=== PATIENT | female | born 1970 | race Caucasian/White ===

== ENCOUNTER → 2018-06-21 10:51 | Outpatient (CLI) | payer OTHER, SELFPAY ==
--- NOTE | 2018-06-21 10:56 | VDLE_ITS ---
Reason For Study: LEG PAIN RIGHT LEFT GSV is normal. CFV is compressible, spontaneous, phasic, CFV is compressible, spontaneous, phasic, competent, and demonstrates normal competent and demonstrates normal augmentation. augmentation. FV is compressible, spontaneous, phasic, competent and demonstrates normal augmentation. POP V is compressible, spontaneous, phasic, competent and demonstrates normal augmentation. T/P Trunk is compressible. PTV is compressible. RT PerV is compressible. Procedure Exam performed in department. A preliminary report was called and/or faxed to Dr. Venita Kelsey. Interpretation Summary Deep veins of the right lower extremity are patent and compressible segmentally. There is no evidence of right lower extremity deep vein thrombosis. Valvular competence appears intact within the proximal deep venous system on the right . The right greater saphenous vein appears patent and compressible segmentally. Ordering Physician: Manjeet Kelsey Referring Physician: Jose Alberto Charles Performed By: Quita Vu RVT
== END ==
PROVIDERS: Family Provider Student in an Organized Health Care Education/Training Program; PCP Student in an Organized Health Care Education/Training Program; Visit Provider Orthopaedic Surgery
DX: M79.604 Pain in right leg (principal)
CPT/HCPCS: 93971

== ENCOUNTER → 2019-08-07 10:53 | Outpatient (CLI) | payer OTHER, SELFPAY ==
--- NOTE | 2019-08-07 10:56 | CT_ITS ---
STUDY: CT ABDOMEN AND PELVIS WITHOUT CONTRAST REASON FOR EXAM: Female, 49 years old. Hematuria. Flank pain. RADIATION DOSAGE (If Supplied By Facility): CTDIvol = ( 6.71 ) mGy, DLP = ( 328.53 ) mGycm TECHNIQUE: Transaxial images were obtained from the dome of the diaphragm to the symphysis pubis without oral contrast, and without intravenous contrast. Sagittal and coronal images were reconstructed. Individualized dose optimization techniques were used for this CT. COMPARISON: Comparison is made with prior study of February 13, 2017. FINDINGS: The visualized lung bases are unremarkable. The visualized portions of the heart are within normal limits. Normal liver. There are surgical clips in the gallbladder fossa consistent with a prior cholecystectomy. Normal spleen. Normal pancreas. Normal bilateral adrenal glands. Normal right kidney. Stable moderate degree of left hydronephrosis. No obstructive calculus is seen. Left ureteropelvic junction stricture should be ruled out. Normal visualized stomach. Normal small intestine. Normal colon. The appendix is visualized and appears normal. There is scattered. Atherosclerotic calcification of the abdominal aorta, without a demonstrated aneurysm. Normal inferior vena cava. There is borderline retroperitoneal lymphadenopathy with enlarged nodes no greater than 10mm in the short axis diameter. Normal urinary bladder. There is absence of the uterus consistent with a prior hysterectomy. Multiple phleboliths are seen in the pelvis. Normal abdominal wall. Normal osseous structures. CT/Abdomen/Pelvis without Cont IMPRESSION: Stable moderate degree of left hydronephrosis to the level of the left ureteropelvic junction. No obstructive calculus is seen. Electronically Signed: Raleigh Morris, at 11:34 EDT , Service support ,
== END ==
LOC: CT 10:54
PROVIDERS: Family Provider Student in an Organized Health Care Education/Training Program; PCP Student in an Organized Health Care Education/Training Program; Referring Provider Nurse Practitioner Adult Health; Visit Provider Nurse Practitioner Adult Health
DX: R31.9 Hematuria, unspecified (principal); R10.9 Unspecified abdominal pain
CPT/HCPCS: 74176

== ENCOUNTER → 2019-08-08 11:25 | Outpatient (CLI) | payer OTHER, SELFPAY ==
--- NOTE | 2019-08-08 | CYSPIN_PTH ---
PATIENT: YOLIE CASTELLON LOC: LAB U#:[id number] AGE/SX: 55/F ROOM: RE08/08/[address]: Sanna Rogers : 1970 BED: DIS: SPEC #: [id number] RECD: 08/08/19 11:37 STATUS: ROSA REFlorentin #: [id number] MARGARITA: 08/08/19 00:[address]: Sanna Rogers DEPT: CYTOLOGY RECD BY: Wayne Doan ENTERED: 08/08/19 12:15 SP TYPE: CYSPIN FL OTHR DR: Dr. Jose Alberto Charles, DO Sanna Rogers, ENGINEER ASSISTANT-C Tissues: Urine Procedures: Pap Stain (control) Special Stain Group II Cytospin Fluid HEADER OPERATION: Not noted PRE-OP DIAGNOSIS: Microhematuria TISSUE SUBMITTED: Urine for cytology DIAGNOSIS CYTOLOGY Urine for cytology (cytospin): Negative for malignant cells. See comment. AM:delvin 08/09/19 COMMENT The specimen primarily contains squamous epithelial cells. Clinical correlation is necessary. CYTOLOGY STUDY Slides are reviewed. CYTOLOGY GROSS Received is 30 ml of light yellow fluid labeled with the patient's name and and designated per the requisition as urine. Submitted for cytology preparation. / delvin 08/08/19 TC:5 CPT: 12570
[2019-08-08 11:39] LABS: Cytology, Body Fluid / CSF SEE PATHOLOGY REPORT
== END ==
PROVIDERS: Family Provider Student in an Organized Health Care Education/Training Program; PCP Student in an Organized Health Care Education/Training Program; Referring Provider Nurse Practitioner Adult Health
DX: R31.29 Other microscopic hematuria (principal)
CPT/HCPCS: 36415; 87086; 88108; 88313

== ENCOUNTER → 2019-08-13 10:55 | Outpatient (CLI) | payer OTHER, SELFPAY ==
[2017-02-14 09:25] VITALS: BMI 24.4
[2019-08-13 10:59] LABS: Bacteria 0 SEEN /hpf (None Seen); Mucous, Urine 0 SEEN /hpf (<or=2+); Red Blood Cells-Urine 0 SEEN /hpf (0-5); White Blood Cells 0 SEEN /hpf (0-5)
[2019-08-13 11:32] LABS: Color, Urine Yellow (Yellow); Glucose, Dipstick Normal (Normal); Ketone-Dipstick Negative (Negative); Leukocyte Esterase-Dipstick Negative /ul (Negative); Nitrite-Dipstick Negative (Negative); Occult Blood-Urine 25 /ul (Negative); Protein-Dipstick Negative (Negative); Urine Bilirubin Dipstick Negative (Negative); Urine Clarity Sl. Cloudy (Clear); Urine Urobilinogen Normal (Normal)
[2019-08-13 11:41] LABS: Squamous Epithelial Cells - UA 0-5 SEEN /hpf (5-10)
== END ==
LOC: LAB.FUTURE 10:56 → LAB 10:59
PROVIDERS: Family Provider Student in an Organized Health Care Education/Training Program; PCP Student in an Organized Health Care Education/Training Program; Referring Provider Nurse Practitioner Adult Health; Visit Provider Nurse Practitioner Adult Health
DX: R31.29 Other microscopic hematuria (principal)
CPT/HCPCS: 81001

== ENCOUNTER → 2021-09-27 10:19 | Outpatient (CLI) | payer OTHER, SELFPAY ==
--- NOTE | 2021-09-24 15:00 | FLU_PTH ---
PATIENT: YOLIE CASTELLON LOC: [facility] U#:[id number] AGE/SX: 55/F ROOM: RE09/27/[address]: Dr. Jose Alberto Charles DO : 1970 BED: DIS: SPEC #: [id number] RECD: 09/24/21 17:00 STATUS: ROSA REQ #: [id number] MARGARITA: 09/24/21 15:[address]: Rea Messer DEPT: CYTOLOGY RECD BY: Linda Alcaraz ENTERED: 09/27/21 11:23 SP TYPE: Fluid OTHR DR: Dr. Jose Alberto Charles DO Tissues: A - Thyroid gland, NOS B - Thyroid gland, NOS Procedures: Special Stain Group II Surgery Specimen Level IV Cytospin Fluid Cytology Other Comments: @ Ordering doctor for SSII edited from to @ by TERI at 09/27/21 1218 @ Ordering doctor for SUIV edited from to DR.LWANG Nava by TERI at 09/27/21 1218 @ Ordering doctor for CYSPIN edited from to DR.LWANG Nava by TERI at 09/27/21 1218 @ Ordering doctor for CYOTHER edited from to DR.LWANG Nava by TERI at 09/27/21 1218 @ Submitting doctor edited from to @ by RGOEARL at 09/27/21 1218 HEADER OPERATION: Left thyroid fine needle aspiration PRE-OP DIAGNOSIS: Thyroid nodule TISSUE SUBMITTED: A - FNA left thyroid fluid, B - FNA left thyroid slides x6 DIAGNOSIS CYTOLOGY A. Fine needle aspiration, left thyroid fluid (cytospin and cell block): Adequate for evaluation. Negative, consistent with benign follicular nodule. Chronic inflammation. B. Fine needle aspiration, left thyroid nodule (smears): Adequate for evaluation. Negative, consistent with chronic thyroiditis. AM:delvin 09/28/2021 CYTOLOGY STUDY Slides are reviewed. CYTOLOGY GROSS A - Received is 30 ml of brown cloudy fluid labeled with the patient's name and and designated per the requisition as left thyroid. Submitted for cytology preparation including cell block. B - Received are six smears labeled with the patient's name and designated per the requisition as left thyroid. Submitted for staining. / delvin 09/27/2021 TC:3 CPT: 49697, 80295, 68514
== END ==
LOC: LAB 10:21 → LABSPEC 10:28
PROVIDERS: PCP Student in an Organized Health Care Education/Training Program; Visit Provider Student in an Organized Health Care Education/Training Program
DX: E04.1 Nontoxic single thyroid nodule (principal)
CPT/HCPCS: 88108; 88161; 88305; 88313

== ENCOUNTER → 2023-10-19 | Outpatient (CLI) | payer OTHER, SELFPAY ==
--- NOTE | 2023-10-19 08:10 | CT_ITS ---
EXAM: CT MAXILLOFACIAL SINUSES WITHOUT INTRAVENOUS CONTRAST CLINICAL INDICATION: SINUITIS TECHNIQUE: Helically acquired images were obtained of the maxillofacial sinuses without intravenous contrast. This CT exam was performed using one or more of the following dose reduction techniques: automated exposure control, adjustment of the mA and/or kV according to patient size, and/or use of iterative reconstruction technique. COMPARISON: No relevant prior studies available. FINDINGS: MAXILLARY SINUSES: Clear. Ostiomeatal complexes are normally formed. SPHENOID SINUSES: Clear. FRONTAL SINUSES: Clear. ETHMOID AIR CELLS: Clear. NASAL CAVITY/SEPTUM: Mild deviation of the nasal septum to the right of midline associated with a right-sided septal spur. Mucosal thickening of the left inferior turbinate. BONES/JOINTS: Normal. ORBITS: Normal. DENTAL: Unremarkable as visualized. No periodontal osseous erosion. CT/Sinus/Facial Bone IMPRESSION: No evidence of sinusitis. Electronically Signed: Aidan Barahona MD at 8:41 EST ,
== END | disposition home or self-care (01) ==
PROVIDERS: PCP Student in an Organized Health Care Education/Training Program; Referring Provider Otolaryngology; Visit Provider Otolaryngology
DX: J32.4 Chronic pansinusitis (principal)
CPT/HCPCS: 70486

== ENCOUNTER 2024-10-04 19:33 | Emergency (ER) | payer OTHER, SELFPAY ==
[2024-10-04 19:34] VITALS: BP 124/83; PULSE 98; RESP 16; TEMP 36.8; O2SAT 100; BMI 28.5
--- NOTE | 2024-10-04 20:06 | CT_ITS ---
STUDY: CT ABDOMEN AND PELVIS WITH CONTRAST REASON FOR EXAM: Female, 54 years old. abdominal pain RADIATION DOSAGE (If Supplied By Facility): CTDIvol = ( 13.25 ) mGy, DLP = ( 819.98 ) mGycm TECHNIQUE: Transaxial images were obtained from the dome of the diaphragm to the symphysis pubis without oral contrast. IV 100mL Isovue-[id number] was administered. Sagittal and coronal images were reconstructed. Individualized dose optimization techniques were used for this CT. COMPARISON: None. FINDINGS: The visualized lung bases are unremarkable. The visualized portions of the heart are within normal limits. Normal liver. Nonvisualization of the gallbladder. No dilatation of the extrahepatic biliary system. Normal spleen. Normal pancreas. Normal bilateral adrenal glands. Hydronephrosis of the right kidney with right hydroureter. Parapelvic cysts in the left kidney. Normal visualized stomach. Normal small intestine. Normal colon. The appendix is visualized and appears normal. Normal abdominal aorta. Normal inferior vena cava. Normal retroperitoneum. Trace stone at the right UVJ of the urinary bladder. Normal abdominal wall. Normal osseous structures. CT/Abdomen/Pelvis W IV Cont ONLY IMPRESSION: Hydronephrosis of the right kidney with right hydroureter. Punctate stone at the right UVJ. Electronically Signed: Murphy Mobley DO at 22:29 EST ,
--- NOTE | 2024-10-04 20:07 | EX.ED.DYSGE1 ---
HPI <TED Pa - Last Filed: 10/04/24 22:00> History of Present Illness Chief Complaint: Flank Pain Narrative Narrative: Patient is a 54-year-old female with history of kidney stones, anxiety who [facility] with 4 to 5 days of left-sided back pain. Patient states she had sudden onset of pain to her right flank that radiated to her right upper and lower abdomen. Patient did see a PCP yesterday in [facility], they gave her tamsulosin, and stated could be a kidney stone. Today, the patient was in significant amount of pain, she thought she was going to pass out. Patient states the pain has decreased slightly. Here for evaluation. PFSH <TED Pa - Last Filed: 10/04/24 22:00> PFSH Home Medications ?Medication ?Instructions ?Recorded ?Last Taken ?Type L.acidoph,paracasei,B.animalis 10 1 ea PO DAILY 02/02/17 Unknown History billion cell capsule ergocalciferol (vitamin D2) 1,250 50,000 mg PO QWEEK 02/02/17 Unknown History mcg (50,000 unit) capsule (Vitamin D2) montelukast 10 mg tablet 10 mg PO DAILY 02/02/17 Unknown History sertraline 25 mg tablet (Zoloft) 50 mg PO DAILY 02/02/17 Unknown History ondansetron 4 mg disintegrating 4 mg PO Q8H PRN PRN Nausea #10 tabs 02/03/17 Unknown Rx tablet ciprofloxacin HCl 500 mg tablet 500 mg PO BID ##14 02/13/17 Unknown Rx esomeprazole magnesium 20 mg 20 mg PO DAILY 02/13/17 Unknown History capsule,delayed release (Nexium) oxycodone-acetaminophen 5 mg-325 1 tab PO Q4H PRN PRN Pain #15 tabs 02/13/17 Unknown Rx mg tablet promethazine 25 mg tablet 25 mg PO Q6H PRN PRN Nausea ##10 02/13/17 Unknown Rx ondansetron 4 mg disintegrating 4 mg PO Q8H PRN PRN Nausea #10 tabs 02/14/17 Unknown Rx tablet oxycodone-acetaminophen 5 mg-325 1 - 2 tab PO Q4H PRN PRN Pain #20 02/14/17 Unknown Rx mg tablet tabs ketorolac 10 mg tablet 10 mg PO 4X/DAY PRN pain 5 days 10/04/24 Unknown Rx #20 tabs oxycodone-acetaminophen 5 mg-325 1 tab PO Q6H PRN pain 3 days #12 10/04/24 Unknown Rx mg tablet (Percocet) tabs Allergy/AdvReac Type Severity Reaction Status Date / Time penicillin Allergy Hives Verified 10/04/24 19:35 amoxicillin (From Augmentin) AdvReac Upset Verified 10/04/24 19:35 Stomach clavulanic acid (From AdvReac Upset Verified 10/04/24 19:35 Augmentin) Stomach naproxen AdvReac Upset Verified 10/04/24 19:35 Stomach Surgical History (Updated 10/04/24 @ 20:45 by Roxana Pringle) H/O: hysterectomy Hx of cholecystectomy Social History Smoking Status: Never smoker ROS <TED Pa - Last Filed: 10/04/24 22:00> ROS ED ROS Narrative Constitutional: Negative for fever, chills, weight loss, weakness Eyes: Negative for vision loss, vision change, double vision ENT: Negative for any sore throat, ear pain, congestion Cardiovascular: Negative for any chest pain, tightness, palpitations Respiratory: Negative for any cough, sputum production, hemoptysis, dyspnea, dyspnea on exertion, orthopnea Gastrointestinal: Negative for any vomiting, diarrhea, constipation, blood in stool, blood in vomit. Positive for right-sided flank pain, right-sided upper and lower abdominal pain : Negative for any urinary frequency, dysuria, retention, blood in urine Muscle skeletal: Negative for any neck pain, back pain Neurological: Negative for any headache, syncope, dizziness Skin: Negative for any rashes, itching, abrasions, lacerations Psychiatric: Negative for any depression, anxiety, stress, suicidal ideation, homicidal ideation Hematologic: Negative for any excessive bruising, easy bleeding EXAM <TED Pa - Last Filed: 10/04/24 22:00> Physical Exam Narrative Exam Narrative: Vital signs reviewed. HEET: Head normocephalic atraumatic, TMs clear bilaterally. Posterior pharynx is clear, moist mucous membranes. Nares clear bilaterally. Neck: Supple with no lymphadenopathy or tenderness. No signs of meningismus. Cardiac: Regular rate and rhythm no murmurs gallops or rubs, equal peripheral pulses bilaterally. Respiratory: Lungs clear to auscultation bilaterally. No chest tenderness. Abdomen: Soft, nondistended. No abdominal bruit or pulsatile masses. No hepatosplenomegaly. Patient's pain is slightly diffuse to the right flank, right upper and lower abdomen. There is no CVA tenderness. No peritoneal signs. Extremities: No peripheral edema, no signs of gross trauma or deformity. Active full range of motion of all extremities. Neuro: Cranial nerves II through XII intact, no focal neurological deficits. Skin: Clean dry and intact with no rash, purpura, petechiae, vesicles or pustules. Backs/flank: No CVA tenderness, no midline spinal tenderness, no deformity. Psych: Normal mood and affect. No SI, HI or acute psychosis. Const Vital Signs: 10/04/24 19:34 10/04/24 21:34 10/04/24 22:11 Temperature 98.2 F 98.2 F Temperature Source Temporal Pulse Rate 98 77 77 Respiratory Rate 16 16 16 Blood Pressure 124/83 H 127/78 H 127/78 H Blood Pressure Mean 96 94 94 Pulse Ox 100 98 98 Oxygen Delivery Method Room Air Room Air Positive well nourished and well developed General Appearance ED: well developed <Dr. David Ni, DO - Last Filed: 10/04/24 21:57> Physical Exam Const Vital Signs: 10/04/24 19:34 10/04/24 21:34 10/04/24 22:11 Temperature 98.2 F 98.2 F Temperature Source Temporal Pulse Rate 98 77 77 Respiratory Rate 16 16 16 Blood Pressure 124/83 H 127/78 H 127/78 H Blood Pressure Mean 96 94 94 Pulse Ox 100 98 98 Oxygen Delivery Method Room Air Room Air <Dr. Sanchez Raya, DO - Last Filed: 10/04/24 22:51> Physical Exam Const Vital Signs: 10/04/24 19:34 10/04/24 21:34 10/04/24 22:11 Temperature 98.2 F 98.2 F Temperature Source Temporal Pulse Rate 98 77 77 Respiratory Rate 16 16 16 Blood Pressure 124/83 H 127/78 H 127/78 H Blood Pressure Mean 96 94 94 Pulse Ox 100 98 98 Oxygen Delivery Method Room Air Room Air MDM <TED Pa - Last Filed: 10/04/24 22:00> MDM Lab Data Labs: Laboratory Results - last 24 hr 10/04/24 20:33 WBC 10.8 RBC 4.59 Hgb 13.6 Hct 40.3 MCV 87.8 MCH 29.6 MCHC 33.7 RDW Std Deviation 41.1 RDW Coeff of Cheikh 12.7 Plt Count 341 MPV 9.5 Immature Gran % (Auto) 0.500 Neut % (Auto) 65.8 Lymph % (Auto) 22.6 [place] % (Auto) 9.9 Eos % (Auto) 0.6 Baso % (Auto) 0.6 Absolute Neuts (auto) 7.1 Absolute Lymphs (auto) 2.44 Nucleated RBC % 0 Sodium 140 Potassium 3.9 Chloride 109 H Carbon Dioxide 27.0 Anion Gap 4 L BUN 10 Creatinine 1.00 Estim Creat Clear Calc 65.53 Est GFR (MDRD) Af Amer 74 Est GFR (MDRD) Non-Af 61 BUN/Creatinine Ratio 10.0 Glucose 113 H Calcium 9.1 Total Bilirubin 1.00 AST 13 L ALT 24 Alkaline Phosphatase 97 Total Protein 7.4 Albumin 3.6 Globulin 3.8 Albumin/Globulin Ratio 0.9 Lipase 48 Urine Color Yellow Urine Clarity Clear Urine pH 6.0 Ur Specific Al[place] 1.020 Urine Protein Negative Urine Glucose (UA) Normal Urine Ketones Negative Urine Occult Blood 150 H Urine Nitrite Negative Urine Bilirubin Negative Urine Urobilinogen Normal Ur Leukocyte Esterase Negative Urine RBC 0-5 SEEN Urine WBC 0-5 SEEN Ur Squamous Epith Cells 0-5 SEEN Urine Bacteria RARE Urine Mucus 0 SEEN Radiography Diagnostic Testing: Clinical Impression(s) from Imaging Studies Abdomen/Pelvis CT 10/04/24 20:06 IMPRESSION: Hydronephrosis of the right kidney with right hydroureter. Punctate stone at the right UVJ. Electronically Signed: Murphy Mobley DO at 22:29 EST Reading Location ID and State: [facility] / [place] Tel [phone], Service support , Treatment and Re-Evaluation :: Differential diagnosis includes however is not limited to: Obstructing uropathy, pyelonephritis, renal colic, acute appendicitis, diverticulitis Patient appears generally well, vital signs are stable, patient is nontoxic-appearing. Presenting to the emergency department with complaints of right-sided flank, right-sided upper and lower abdominal pain. Patient received a full abdominal workup including CBC CMP lipase, patient will receive a CT scan of the abdomen pelvis with IV contrast. Patient be given IV fluids, IV Zofran, IV Toradol. All radiologic examinations were read, reviewed by the emergency department attending. From these reads, a plan of care will be put in place. Patient's laboratory values show a normal CBC, patient's chemistries showed a glucose of 113, lipase was negative. Patient's urinalysis showed 150 blood, no infection noted. CT scan the abdomen pelvis with IV contrast ordered. I have personally performed a face to face assessment of the patient and have reviewed the [facility] Note. I performed a substantive portion of the visit including all aspects of the following. My salazar findings include: History is 54-year-old female history of kidney stones presenting to the emergency room with left flank right lower abdominal pain. Pelvic she might be having a stone so she started Flomax yesterday. Exam is patient resting comfortably. Vital signs are stable. Abdominal exam nonsurgical Medical Decison Making basic blood work and urinalysis negative. CT of the pelvis was obtained reviewed by myself. We will await the CT findings. I would anticipate a discharge based on my initial review. <Dr. David Ni, DO - Last Filed: 10/04/24 21:57> [facility] History & Record Review Discussion w/independent historian: Patient and Significant other Lab Data Attestation: I reviewed the patient's lab results. Labs: Laboratory Results - last 24 hr 10/04/24 20:33 WBC 10.8 RBC 4.59 Hgb 13.6 Hct 40.3 MCV 87.8 MCH 29.6 MCHC 33.7 RDW Std Deviation 41.1 RDW Coeff of Cheikh 12.7 Plt Count 341 MPV 9.5 Immature Gran % (Auto) 0.500 Neut % (Auto) 65.8 Lymph % (Auto) 22.6 [place] % (Auto) 9.9 Eos % (Auto) 0.6 Baso % (Auto) 0.6 Absolute Neuts (auto) 7.1 Absolute Lymphs (auto) 2.44 Nucleated RBC % 0 Sodium 140 Potassium 3.9 Chloride 109 H Carbon Dioxide 27.0 Anion Gap 4 L BUN 10 Creatinine 1.00 Estim Creat Clear Calc 65.53 Est GFR (MDRD) Af Amer 74 Est GFR (MDRD) Non-Af 61 BUN/Creatinine Ratio 10.0 Glucose 113 H Calcium 9.1 Total Bilirubin 1.00 AST 13 L ALT 24 Alkaline Phosphatase 97 Total Protein 7.4 Albumin 3.6 Globulin 3.8 Albumin/Globulin Ratio 0.9 Lipase 48 Urine Color Yellow Urine Clarity Clear Urine pH 6.0 Ur Specific Alma 1.020 Urine Protein Negative Urine Glucose (UA) Normal Urine Ketones Negative Urine Occult Blood 150 H Urine Nitrite Negative Urine Bilirubin Negative Urine Urobilinogen Normal Ur Leukocyte Esterase Negative Urine RBC 0-5 SEEN Urine WBC 0-5 SEEN Ur Squamous Epith Cells 0-5 SEEN Urine Bacteria RARE Urine Mucus 0 SEEN Radiography Diagnostic Testing: Clinical Impression(s) from Imaging Studies Abdomen/Pelvis CT 10/04/24 20:06 IMPRESSION: Hydronephrosis of the right kidney with right hydroureter. Punctate stone at the right UVJ. Electronically Signed: Murphy Mobley DO at 22:29 EST Reading Location ID and State: [address] [place] [address] Tel [phone], Service support , Treatment and Re-Evaluation :: Differential diagnosis includes however is not limited to: Obstructing uropathy, pyelonephritis, renal colic, acute appendicitis, diverticulitis Patient appears generally well, vital signs are stable, patient is nontoxic-appearing. Presenting to the emergency department with complaints of right-sided flank, right-sided upper and lower abdominal pain. Patient received a full abdominal workup including CBC CMP lipase, patient will receive a CT scan of the abdomen pelvis with IV contrast. Patient be given IV fluids, IV Zofran, IV Toradol. All radiologic examinations were read, reviewed by the emergency department attending. From these reads, a plan of care will be put in place. Patient's laboratory values show a normal CBC, patient's chemistries showed a glucose of 113, lipase was negative. Patient's urinalysis showed 150 blood, no infection noted. CT scan the abdomen pelvis with IV contrast ordered. I have personally performed a face to face assessment of the patient and have reviewed the [facility] Note. I performed a substantive portion of the visit including all aspects of the following. My salazar findings include: History is 54-year-old female history of kidney stones presenting to the emergency room with left flank right lower abdominal pain. Pelvic she might be having a stone so she started Flomax yesterday. Exam is patient resting comfortably. Vital signs are stable. Abdominal exam nonsurgical Medical Decison Making basic blood work and urinalysis negative. CT of the pelvis was obtained reviewed by myself. We will await the CT findings. I would anticipate a discharge based on my initial review. <Dr. Sanchez Raya, DO - Last Filed: 10/04/24 22:51> [facility] MDM Narrative Medical decision making narrative: Patient was signed out to me while awaiting results of her CT scan. CT scan showed a punctate stone at the right UVJ with hydronephrosis. However she has no signs of urosepsis or acute kidney injury and her pain had resolved in the ER. Therefore there is no need for further intervention and she is otherwise safe for discharge with outpatient urology follow-up Lab Data Labs: Laboratory Results - last 24 hr 10/04/24 20:33 WBC 10.8 RBC 4.59 Hgb 13.6 Hct 40.3 MCV 87.8 MCH 29.6 MCHC 33.7 RDW Std Deviation 41.1 RDW Coeff of Cheikh 12.7 Plt Count 341 MPV 9.5 Immature Gran % (Auto) 0.500 Neut % (Auto) 65.8 Lymph % (Auto) 22.6 [place] % (Auto) 9.9 Eos % (Auto) 0.6 Baso % (Auto) 0.6 Absolute Neuts (auto) 7.1 Absolute Lymphs (auto) 2.44 Nucleated RBC % 0 Sodium 140 Potassium 3.9 Chloride 109 H Carbon Dioxide 27.0 Anion Gap 4 L BUN 10 Creatinine 1.00 Estim Creat Clear Calc 65.53 Est GFR (MDRD) Af Amer 74 Est GFR (MDRD) Non-Af 61 BUN/Creatinine Ratio 10.0 Glucose 113 H Calcium 9.1 Total Bilirubin 1.00 AST 13 L ALT 24 Alkaline Phosphatase 97 Total Protein 7.4 Albumin 3.6 Globulin 3.8 Albumin/Globulin Ratio 0.9 Lipase 48 Urine Color Yellow Urine Clarity Clear Urine pH 6.0 Ur Specific [place] 1.020 Urine Protein Negative Urine Glucose (UA) Normal Urine Ketones Negative Urine Occult Blood 150 H Urine Nitrite Negative Urine Bilirubin Negative Urine Urobilinogen Normal Ur Leukocyte Esterase Negative Urine RBC 0-5 SEEN Urine WBC 0-5 SEEN Ur Squamous Epith Cells 0-5 SEEN Urine Bacteria RARE Urine Mucus 0 SEEN Radiography Diagnostic Testing: Clinical Impression(s) from Imaging Studies Abdomen/Pelvis CT 10/04/24 20:06 IMPRESSION: Hydronephrosis of the right kidney with right hydroureter. Punctate stone at the right UVJ. Electronically Signed: Murphy Mobley DO at 22:29 EST Reading Location ID and State: [facility] / [place] Tel [phone], Service support , Discharge Plan Triage Chief Complaint: Flank Pain ED Midlevel Provider: Sterling Ellison ED Provider: David Ni Dx/Rx/DC Orders Clinical Impression: Hematuria, Kidney stone Instructions: Abdominal Pain, ED Hematuria, ED Kidney Stone with Pain Prescriptions: New oxycodone-acetaminophen [Percocet] 5-325 mg tablet 1 tab PO Q6H PRN (Reason: pain) 3 Days Qty: 12 0RF ketorolac 10 mg tablet 10 mg PO 4X/DAY PRN (Reason: pain) 5 Days Qty: 20 0RF No Action sertraline [Zoloft] 25 MG tablet 50 mg PO DAILY montelukast 10 MG tablet 10 mg PO DAILY ergocalciferol (vitamin D2) [Vitamin D2] 50,000 UNIT capsule 50,000 mg PO QWEEK L.acidoph,paracasei,B.animalis 1 EACH capsule 1 ea PO DAILY ondansetron 4 MG tablet 4 mg PO Q8H PRN PRN (Reason: Nausea) Qty: 10 0RF esomeprazole magnesium [Nexium] 20 MG capsule 20 mg PO DAILY ciprofloxacin HCl 500 MG tablet 500 mg PO BID Qty: 14 0RF oxycodone-acetaminophen 1 TABLET tablet 1 tab PO Q4H PRN PRN (Reason: Pain) Qty: 15 0RF promethazine 25 MG tablet 25 mg PO Q6H PRN PRN (Reason: Nausea) Qty: 10 0RF oxycodone-acetaminophen 1 TABLET tablet 1 - 2 tab PO Q4H PRN PRN (Reason: Pain) Qty: 20 0RF ondansetron 4 MG tablet 4 mg PO Q8H PRN PRN (Reason: Nausea) Qty: 10 0RF Primary Care Provider: Jose Alberto Charles Referrals: Jose Alberto Charles DO [Primary Care Provider] - Activity Restrictions/Additional Instructions: Please follow-up with your urologist for repeat evaluation and discussed need for potential stent placement or lithotripsy if you do not pass your kidney stone. If you develop a fever over 100.4 or have intractable pain despite taking your medications please return to the hospital for repeat evaluation Print Language: Indonesian Disposition Disposition: Home, Self Care
[2024-10-04 20:43] LABS: Mucous, Urine 0 SEEN /hpf (<or=2+)
[2024-10-04 20:44] LABS: Absolute Lymphocyte Count 2.44 X10^3/uL (0.83-4.51); Absolute Neutrophil Count 7.1 X10^3/uL (2.0-7.7); Basophil# 0.07 X10^3/uL; Basophil% 0.6 % (0-1); Color, Urine Yellow (Yellow); Eosinophil# 0.06 X10^3/uL; Eosinophils% 0.6 % (0-5); Glucose, Dipstick Normal (Normal); Hematocrit 40.3 % (37-47); Hemoglobin 13.6 g/dL (12.0-15.0); Ketone-Dipstick Negative (Negative); Leukocyte Esterase-Dipstick Negative /ul (Negative); Lymphocyte # 2.44 X10^3/ul (0.83-4.51); Lymphocyte % 22.6 % (19-41); Mean Corp Hgb Conc 33.7 g/dL (32-36); Mean Corpuscular Hgb 29.6 pg (27.0-32.0); Mean Corpuscular Volume 87.8 fL (81-99); Mean Platelet Vol. 9.5 fl (6.2-12.0); Monocyte# 1.07 X10^3/uL; Monocyte% 9.9 % (0-10); NRBC Flagged by Analyzer 0 % (0-5); Neutrophil # 7.12 X10^3/uL (2.7-7.7); Neutrophil % 65.8 % (47-70); Nitrite-Dipstick Negative (Negative); Occult Blood-Urine 150 /ul (Negative); Platelet Count 341 K/mm3 (150-450); Protein-Dipstick Negative (Negative); RBC Distribution Width CV 12.7 % (11.6-14.6); RBC Distribution Width SD 41.1 fl (35.1-43.9); Red Blood Count 4.59 M/mm3 (4.2-5.4); Urine Bilirubin Dipstick Negative (Negative); Urine Clarity Clear (Clear); Urine Urobilinogen Normal (Normal); White Blood Count 10.8 K/mm3 (4.4-11.0)
[2024-10-04] MEDS: Ondansetron 4 MG/2 ML Vial IV (20:47)
[2024-10-04] MEDS: Ketorolac 15 MG/ML Vial IV (20:47)
[2024-10-04 20:52] LABS: Bacteria RARE /hpf (None Seen); Red Blood Cells-Urine 0-5 SEEN /hpf (0-5); Squamous Epithelial Cells - UA 0-5 SEEN /hpf (5-10); White Blood Cells 0-5 SEEN /hpf (0-5)
[2024-10-04 21:02] LABS: ALB/GLOB Ratio 0.9 RATIO (0.9-2.4); AST(SGOT) 13 U/L (15-37); Alanine Aminotransfer ALT/SGPT 24 U/L (13-56); Albumin, Serum 3.6 g/dL (3.2-5.0); Alkaline Phosphatase 97 U/L (45-117); Anion Gap 4 (5-15); BUN 10 mg/dL (7-18); Calcium,Total 9.1 mg/dL (8.5-10.1); Chloride 109 mmol/L (98-107); EST Glomerular Filtration Rate 61 mL/min (>60); Est Glom Filt Rate - Afr Amer 74 mL/min (>60); Estimated Creatinine Clearance 65.53 ml/min; Globulin 3.8 g/dL (2.2-4.2); Glucose 113 mg/dL (74-106); Lipase 48 U/L (13-75); Potassium 3.9 mmol/L (3.5-5.1); Protein, Total 7.4 g/dL (6.4-8.2); Sodium Level 140 mmol/L (136-145)
[2024-10-04 21:34] VITALS: BP 127/78; PULSE 77; RESP 16; O2SAT 98
[2024-10-04 22:11] VITALS: BP 127/78; PULSE 77; RESP 16; TEMP 36.8; O2SAT 98
[2024-10-04 23:00] VITALS: PULSE 77; RESP 16; O2SAT 98
== END 2024-10-04 23:09 | disposition home or self-care (01) ==
PROVIDERS: Nurse Practitioner; Emergency Provider Emergency Medicine; PCP Student in an Organized Health Care Education/Training Program; Visit Provider Emergency Medicine
DX: N13.2 Hydronephrosis with renal and ureteral calculous obstruction (principal); F41.9 Anxiety disorder, unspecified; R31.9 Hematuria, unspecified; Z90.710 Acquired absence of both cervix and uterus; Z87.442 Personal history of urinary calculi; Z90.49 Acquired absence of other specified parts of digestive tract
CPT/HCPCS: 74177; 80053; 81001; 83690; 85025; 96374; 96375; 99283; Q9967; A4216; J2405